=== PATIENT | female | born 1970 | race Two or more races ===

== ENCOUNTER 2017-07-13 12:42 | Emergency (ER) | payer MEDICAID ==
[~2017-07-13] VITALS: Ht 157.5 cm; Wt 90.3 kg
[~2017-07-13 12:42] MED LIST: BENAZEPRIL HCL20 MG ORAL; CATAPRES0.1 MG ORAL; GABAPENTIN300 MG ORAL; HYDROCHLOROTHIA25 MG ORAL; IBUPROFEN600 MG ORAL; MELOXICAM15 MG PO; OXYCODONE-ACET1 EAC5 ORAL
--- NOTE | 2017-07-13 14:04 | Emergency Room Report ---
History of Present Illness General Chief Complaint: Syncope Source: Patient (Mk Cole M.D.) Present Illness HPI 47-year-old female, history of fibromyalgia, chronic pain, presenting with syncopal episode. Patient's son states that she called him to come into the bedroom, she was sitting up in her bed, lost consciousness hit the floor carpet. There was about 5 seconds LOC. Patient woke up and does not recall what happened. Patient states that she only remembers feeling very very sleepy. States that she may have taken too much of her pain medication or her sleeping medication. Denies any suicidal ideation. Denies any chest pain shortness of breath palpitations nausea vomiting prior to incident. (Mk Cole M.D.) Allergies: Coded Allergies: COCONUT (Verified Allergy, Unknown, 07/13/17) PINEAPPLE (Verified Allergy, Unknown, 07/13/17) Patient History Past Medical History: see triage record Past Surgical History: none Pertinent Family History: none Last Menstrual Period: a week ago Reviewed Nursing Documentation: PMH: Agreed, PSxH: Agreed (Mk Cole M.D. ) Nursing Documentation-PMH Past Medical History: No History, Except For Hx Cardiac Problems: Yes - irregular heart beat; heart surgery Hx Hypertension: Yes Hx Pacemaker: No - fibromyalgia Hx Asthma: No Hx COPD: No Hx Diabetes: No Hx Cancer: No Hx Gastrointestinal Problems: No Hx Dialysis: No History Of Psychiatric Problem: Yes - depression Hx Neurological Problems: No Hx Cerebrovascular Accident: No Hx Seizures: No (Mk Cole M.D.) Review of Systems All Other Systems: negative except mentioned in HPI (Mk Cole M.D.) Physical Exam Vital Signs Date Time Temp Pulse Resp B/P (MAP) Pulse Ox O2 Delivery O2 Flow Rate FiO2 07/13/17 12:54 98.2 79 16 159/115 96 Room Air Sp02 EP Interpretation: reviewed, normal General Appearance: normal inspection, well appearing, no apparent distress, alert, GCS 15, non-toxic Head: normocephalic, atraumatic Eyes: bilateral eye normal inspection, bilateral eye PERRL, bilateral eye EOMI ENT: normal ENT inspection, normal pharynx, normal voice, moist mucus membranes Neck: normal inspection, full range of motion, supple, no meningismus Respiratory: normal inspection, lungs clear, normal breath sounds, no respiratory distress, no retraction, no wheezing, speaking full sentences, chest symmetrical Cardiovascular #1: normal inspection, regular rate, rhythm, no edema, normal capillary refill Cardiovascular #2: 2+ radial (R), 2+ radial (L) Gastrointestinal: normal inspection, non tender, soft, non-distended, no guarding Musculoskeletal: normal inspection, back normal, normal range of motion, non- tender Neurologic: normal inspection, alert, oriented x3, responsive, real property evaluator III-XII nml as tested, motor strength/tone normal, sensory intact, normal gait, speech normal Psychiatric: normal inspection, judgement/insight normal, memory normal Skin: normal inspection, normal color, no rash, warm/dry, well hydrated, normal turgor (Mk Cole M.D.) Medical Decision Making Diagnostic Impression: Primary Impression: Syncope Qualified Codes: R55 - Syncope and collapse ER Course 47-year-old female with syncopal episode DDX Vasovagal vs. orthostatic / hypovolemic/dehydration vs. cardiac arrhythmia (SVT , Afib) vs. cardiac (, ACS) vs. PE vs. metabolic (hypoglycemia, hypoxia), vs neuro (seizure, CVA, intracranial bleed) Also possibly induced by taking too much of her sleeping and pain medication Plan: bgm, cbc, bmp, ekg, cxr ER course: EKG: no acute STT changes, normal intervals, no signs of Brugada / WPW / PE Patient has remained stable during ED stay. Patient states improvement of symptoms, and has been able to ambulate around ED Disposition: Signed out patient to Dr. Godinez 47 yo F with syncopal episode pending labs pt neurologically intact likely DC home if neg as patient appears well Please note that this Emergency Department Report was dictated using [employer] technology software, occasionally this can lead to erroneous entry secondary to interpretation by the dictation equipment. EKG Diagnostic Results EP Interpretation: Yes Rate: normal Rhythm: NSR ST Segments: No acute changes ASA given to patient: no Rhythm Strip EP Interpretation: Yes Rate: 82 Rhythm: NSR, no PVCs, no ectopy Chest X-ray CXR: Ordered: Yes 1 view Indication: ams EP interpretation: Yes Interpretation: No consolidation, no effusion, no PTX, no acute cardiopulmonary disease Impression: No acute disease Electronically signed by Mk Cole MD Laboratory Tests Test 07/13/17 14:15 07/13/17 14:50 White Blood Count 7.1 K/UL (4.8-10.8) Red Blood Count 4.32 M/UL (4.20-5.40) Hemoglobin 13.3 G/DL (12.0-16.0) Hematocrit 40.4 % (37.0-47.0) Mean Corpuscular Volume 93 FL (80-99) Mean Corpuscular Hemoglobin 30.7 PG (27.0-31.0) Mean Corpuscular Hemoglobin Concent 32.9 G/DL (32.0-36.0) Red Cell Distribution Width 11.3 % (11.6-14.8) L Platelet Count 413 K/UL (150-450) Mean Platelet Volume 6.1 FL (6.5-10.1) L Neutrophils (%) (Auto) 57.1 % (45.0-75.0) Lymphocytes (%) (Auto) 28.5 % (20.0-45.0) Monocytes (%) (Auto) 9.0 % (1.0-10.0) Eosinophils (%) (Auto) 4.4 % (0.0-3.0) H Basophils (%) (Auto) 1.0 % (0.0-2.0) Sodium Level 141 MMOL/L (136-145) Potassium Level 3.8 MMOL/L (3.5-5.1) Chloride Level 108 MMOL/L (98-107) H Carbon Dioxide Level 25 MMOL/L (21-32) Anion Gap 8 mmol/L (5-15) Blood Urea Nitrogen 11 mg/dL (7-18) Creatinine 0.7 MG/DL (0.55-1.30) Estimate Glomerular Filtration Rate > 60 mL/min (>60) Glucose Level 86 MG/DL (74-106) Calcium Level 9.0 MG/DL (8.5-10.1) Total Bilirubin 0.3 MG/DL (0.2-1.0) Aspartate Amino Transferase (AST) 68 U/L (15-37) H Alanine Aminotransferase (ALT) 129 U/L (12-78) H Alkaline Phosphatase 68 U/L (46-116) Troponin I 0.023 ng/mL (0.000-0.056) Total Protein 7.0 G/DL (6.4-8.2) Albumin 3.4 G/DL (3.4-5.0) Globulin 3.6 g/dL Albumin/Globulin Ratio 0.9 (1.0-2.7) L Urine Color Yellow Urine Appearance Slightly cloudy Urine pH 6.5 (4.5-8.0) Urine Specific [place] 1.010 (1.005-1.035) Urine Protein Negative (NEGATIVE) Urine Glucose (UA) Negative (NEGATIVE) Urine Ketones Negative (NEGATIVE) Urine Occult Blood 2+ (NEGATIVE) H Urine Nitrite Negative (NEGATIVE) Urine Bilirubin Negative (NEGATIVE) Urine Urobilinogen 1 MG/DL (0.0-1.0) H Urine Leukocyte Esterase 3+ (NEGATIVE) H Urine RBC 5-10 /HPF (0 - 2) H Urine WBC 10-15 /HPF (0 - 2) H Urine Squamous Epithelial Cells Few /LPF (NONE/OCC) Urine Bacteria Moderate /HPF (NONE) H Urine HCG, Qualitative Negative (Mk Cole M.D.) ER Course Received signout from Dr Cole to followup labs, eval for syncope ECG is NSR, no ischemia. Troponin 0. UA grossly infected Likely cause is UTI leading to vasovagal syncope No other symptoms in ED Remains stable DC home with Macrobid (DEBBI GODINEZ M.D.) EKG Diagnostic Results Rate: normal Rhythm: NSR ST Segments: no acute changes ASA given to the pt in ED: No (DEBBI GODINEZ M.D.) Rhythm Strip Diag. Results EP Interpretation: yes Rate: 67 Rhythm: NSR, no PVC's, no ectopy (DEBBI GODINEZ M.D.) Last Vital Signs Date Time Temp Pulse Resp B/P (MAP) Pulse Ox O2 Delivery O2 Flow Rate FiO2 07/13/17 12:54 98.2 79 16 159/115 96 Room Air (Mk Cole M.D.) Status: improved (DEBBI GODINEZ M.D.) Disposition: HOME, SELF-CARE Condition: Improved Scripts Nitrofurantoin Monohyd/M-Cryst* (MACROBID 100 MG*) 100 Mg Capsule 100 MG ORAL EVERY 12 HOURS for 7 Days, #14 CAP Prov: DEBBI GODINEZ M.D. 07/13/17 Patient Instructions: Syncope Mk Cole M.D. Jul 13, 2017 14:04 DEBBI GODINEZ M.D. Jul 13, 2017 16:29
[2017-07-13 14:54] LABS: EOSINOPHILS % (AUTO) 4.4 % (0.0-3.0); LYMPHOCYTES % (AUTO) 28.5 % (20.0-45.0); MEAN CORPUSCULAR HEMOGLOBIN 30.7 PG (27.0-31.0); MEAN CORPUSCULAR HGB CONC 32.9 G/DL (32.0-36.0); MEAN CORPUSCULAR VOLUME 93 FL (80-99); MEAN PLATELET VOLUME 6.1 FL (6.5-10.1); NEUTROPHILS % (AUTO) 57.1 % (45.0-75.0); PLATELET COUNT 413 K/UL (150-450); RED BLOOD COUNT 4.32 M/UL (4.20-5.40); RED CELL DISTRIBUTION WIDTH 11.3 % (11.6-14.8); WHITE BLOOD COUNT 7.1 K/UL (4.8-10.8)
--- NOTE | 2017-07-13 15:02 | Diagnostic Imaging Report ---
Indication: PAIN Technique: One view of the chest Comparison: none Findings: Lungs and pleural spaces are clear. Heart size is normal . No significant change Impression: No acute process Note that the right lung opacity described on CT 05/05/2016 is not evident on plain radiograph
[2017-07-13 15:47] VITALS: BP 164/93
[2017-07-13 15:54] LABS: APPEARANCE,URINE SLIGHTLY CLOUDY; KETONES,URINE NEGATIVE (NEGATIVE); LEUKOCYTE ESTERASE ,URINE 3+ (NEGATIVE); NITRITE,URINE NEGATIVE (NEGATIVE); PH,URINE 6.5 (4.5-8.0); PROTEIN,URINE NEGATIVE (NEGATIVE); UROBILINOGEN,URINE 1 MG/DL (0.0-1.0)
[2017-07-13 16:13] LABS: ALANINE AMINOTRANSFERASE 129 U/L (12-78); ALBUMIN/GLOBULIN RATIO 0.9 (1.0-2.7); ANION GAP 8 mmol/L (5-15); ASPARTATE AMINO TRANSFERASE 68 U/L (15-37); CARBON DIOXIDE 25 MMOL/L (21-32); CHLORIDE 108 MMOL/L (98-107); CREATININE 0.7 MG/DL (0.55-1.30); GLOMERULAR FILTRATION RATE > 60 mL/min (>60); POTASSIUM 3.8 MMOL/L (3.5-5.1); SODIUM 141 MMOL/L (136-145)
[2017-07-13 16:14] LABS: SQUAMOUS EPITHELIAL CELL,UR FEW /LPF (NONE/OCC)
[2017-07-13 16:15] LABS: BACTERIA,URINE MODERATE /HPF
[2017-07-13] MEDS ORDERED: NITROFURANTOIN100 M2 ORAL (16:30)
[2017-07-13 16:50] VITALS: BP 177/101
--- NOTE | 2017-07-17 14:56 | Cardiology Report ---
APPROVED REPORT EKG Measurement Heart [id number] Normal sinus rhythm Normal ECG
== END 2017-07-13 16:50 | disposition home or self-care (01) ==
LOC: EMR 14:35
DX: R55 Syncope and collapse (principal); I10 Essential (primary) hypertension; Z91.018 Allergy to other foods; F32.9 Major depressive disorder, single episode, unspecified
CPT/HCPCS: 36415; 71010; 80053; 81003; 81025; 84484; 85025; 87086; 93005; 99283

== ENCOUNTER 2017-08-08 01:44 | Emergency (ER) | payer MEDICAID ==
[~2017-08-08] VITALS: Ht 157.5 cm; Wt 92.1 kg
[~2017-08-08 01:44] MED LIST changes: +NITROFURANTOIN100 M2 ORAL
[2017-08-08 01:54] VITALS: BP 191/117
[2017-08-08 02:46] LABS: BASOPHILS % (AUTO) 0.9 % (0.0-2.0); EOSINOPHILS % (AUTO) 4.6 % (0.0-3.0); LYMPHOCYTES % (AUTO) 29.7 % (20.0-45.0); MEAN CORPUSCULAR HEMOGLOBIN 31.5 PG (27.0-31.0); MEAN CORPUSCULAR HGB CONC 34.2 G/DL (32.0-36.0); MEAN CORPUSCULAR VOLUME 92 FL (80-99); MEAN PLATELET VOLUME 5.6 FL (6.5-10.1); MONOCYTES % (AUTO) 9.1 % (1.0-10.0); NEUTROPHILS % (AUTO) 55.7 % (45.0-75.0); PLATELET COUNT 482 K/UL (150-450); RED BLOOD COUNT 4.45 M/UL (4.20-5.40); RED CELL DISTRIBUTION WIDTH 11.2 % (11.6-14.8); WHITE BLOOD COUNT 9.4 K/UL (4.8-10.8)
--- NOTE | 2017-08-08 02:51 | Emergency Room Report ---
History of Present Illness General Chief Complaint: Hypertension Source: Patient Present Illness HPI 47-year-old female history of hypertension, fibromyalgia, chronic pain, presenting with high blood pressure. Patient states that she checked her blood pressure, systolic was seemed to be 190, states that she's been compliant with her blood pressure medications, states that she got a new patient he care doctor because she does not believe that her current primary care doctors taking care of her. Denying any current chest pain shortness of breath headache. Patient states that she has chronic abdominal pain, that is no worse than normal. She is eating and drinking normally. No black or bloody stools. Some nausea no vomiting. Patient also states that she is been under a great deal of stress, and is seeing a psychotherapist Allergies: Coded Allergies: COCONUT (Verified Allergy, Unknown, 07/13/17) PINEAPPLE (Verified Allergy, Unknown, 07/13/17) Patient History Past Medical History: see triage record Past Surgical History: none Pertinent Family History: none Last Menstrual Period: 08/04/17 Reviewed Nursing Documentation: PMH: Agreed, PSxH: Agreed Nursing Documentation-PMH Hx Cardiac Problems: Yes - irregular heart beat; heart surgery Hx Hypertension: Yes Hx Pacemaker: No - fibromyalgia Hx Asthma: No Hx COPD: No Hx Diabetes: No Hx Cancer: No Hx Gastrointestinal Problems: No Hx Dialysis: No Hx Neurological Problems: No Hx Cerebrovascular Accident: No Hx Seizures: No Review of Systems All Other Systems: negative except mentioned in HPI Physical Exam Vital Signs Date Time Temp Pulse Resp B/P (MAP) Pulse Ox O2 Delivery O2 Flow Rate FiO2 08/08/17 01:50 97.3 88 17 191/117 98 Room Air Sp02 EP Interpretation: reviewed, normal General Appearance: alert, GCS 15, non-toxic, mild distress Head: normocephalic, atraumatic Eyes: bilateral eye normal inspection, bilateral eye PERRL, bilateral eye EOMI ENT: normal ENT inspection, normal pharynx, normal voice, moist mucus membranes Neck: normal inspection, full range of motion, supple Respiratory: normal inspection, lungs clear, normal breath sounds, no respiratory distress, no retraction, no wheezing, speaking full sentences, chest symmetrical Cardiovascular #1: normal inspection, regular rate, rhythm, no edema, normal capillary refill Cardiovascular #2: 2+ radial (R), 2+ radial (L) Gastrointestinal: normal inspection, non tender, soft, non-distended, no guarding Musculoskeletal: normal inspection, back normal, normal range of motion, non- tender Neurologic: normal inspection, alert, oriented x3, responsive, motor strength/ tone normal, sensory intact, normal gait, speech normal Psychiatric: normal inspection, judgement/insight normal, memory normal Skin: normal inspection, normal color, no rash, warm/dry, well hydrated, normal turgor Medical Decision Making Diagnostic Impression: Primary Impression: Hypertension ER Course 47-year-old female, chronic pain, here for high blood pressure reading DDX: Asymptomatic high blood pressure Plan: Obtain labs, ua, ucx, CXR, EKG At this time there is no indication for correction of her blood pressure in the emergency room setting ER course: Patient has remained stable during ED stay. Ambulatory, nontoxic, conversing appropriately, not in acute distres labs unremarkable BP improved systolic <170 asymptomatic Disposition: Patient is to be discharged to home. Patient is instructed to follow up with their primary care doctor within 5 days for recheck of blood pressure and an alteration of blood pressure medications Strict return precautions discussed with patient such as fever, chills, worsening/severe pain, chest pain, SOB, nausea, vomiting, which may indicate severe illness. Patient verbalizes understanding and agrees with plan. Please note that this Emergency Department Report was dictated using [employer] technology software, occasionally this can lead to erroneous entry secondary to interpretation by the dictation equipment EKG Diagnostic Results EP Interpretation: Yes Rate: normal Rhythm: NSR ST Segments: T-wave inversion noted in lead 3 only ASA given to patient: No Rhythm Strip EP Interpretation: Yes Rate: 79 Rhythm: NSR, no PVCs, no ectopy Chest X-ray CXR: Ordered: Yes 1 view Indication: Pain EP interpretation: Yes Interpretation: No consolidation, no effusion, no PTX, no acute cardiopulmonary disease Impression: No acute disease Electronically signed by Mk Cole MD Laboratory Tests Test 08/08/17 02:35 08/08/17 02:50 White Blood Count 9.4 K/UL (4.8-10.8) Red Blood Count 4.45 M/UL (4.20-5.40) Hemoglobin 14.0 G/DL (12.0-16.0) Hematocrit 41.0 % (37.0-47.0) Mean Corpuscular Volume 92 FL (80-99) Mean Corpuscular Hemoglobin 31.5 PG (27.0-31.0) H Mean Corpuscular Hemoglobin Concent 34.2 G/DL (32.0-36.0) Red Cell Distribution Width 11.2 % (11.6-14.8) L Platelet Count 482 K/UL (150-450) H Mean Platelet Volume 5.6 FL (6.5-10.1) L Neutrophils (%) (Auto) 55.7 % (45.0-75.0) Lymphocytes (%) (Auto) 29.7 % (20.0-45.0) Monocytes (%) (Auto) 9.1 % (1.0-10.0) Eosinophils (%) (Auto) 4.6 % (0.0-3.0) H Basophils (%) (Auto) 0.9 % (0.0-2.0) Sodium Level 140 MMOL/L (136-145) Potassium Level 3.4 MMOL/L (3.5-5.1) L Chloride Level 105 MMOL/L (98-107) Carbon Dioxide Level 28 MMOL/L (21-32) Anion Gap 7 mmol/L (5-15) Blood Urea Nitrogen 13 mg/dL (7-18) Creatinine 0.7 MG/DL (0.55-1.30) Estimate Glomerular Filtration Rate > 60 mL/min (>60) Glucose Level 111 MG/DL (74-106) H Calcium Level 8.8 MG/DL (8.5-10.1) Total Bilirubin 0.3 MG/DL (0.2-1.0) Aspartate Amino Transferase (AST) 15 U/L (15-37) Alanine Aminotransferase (ALT) 36 U/L (12-78) Alkaline Phosphatase 85 U/L (46-116) Troponin I 0.023 ng/mL (0.000-0.056) Pro-B-Type Natriuretic Peptide 71 pg/mL (0-125) Total Protein 7.5 G/DL (6.4-8.2) Albumin 3.8 G/DL (3.4-5.0) Globulin 3.7 g/dL Albumin/Globulin Ratio 1.0 (1.0-2.7) Urine Color Pale yellow Urine Appearance Clear Urine pH 7 (4.5-8.0) Urine Specific [place] 1.005 (1.005-1.035) Urine Protein Negative (NEGATIVE) Urine Glucose (UA) Negative (NEGATIVE) Urine Ketones Negative (NEGATIVE) Urine Occult Blood Negative (NEGATIVE) Urine Nitrite Negative (NEGATIVE) Urine Bilirubin Negative (NEGATIVE) Urine Urobilinogen Normal MG/DL (0.0-1.0) Urine Leukocyte Esterase Negative (NEGATIVE) Urine HCG, Qualitative Negative Last Vital Signs Date Time Temp Pulse Resp B/P (MAP) Pulse Ox O2 Delivery O2 Flow Rate FiO2 08/08/17 01:50 97.3 88 17 191/117 98 Room Air Disposition: HOME, SELF-CARE Condition: Improved Patient Instructions: High Blood Pressure (Hypertension) Mk Cole M.D. Aug 08, 2017 02:51
[2017-08-08 03:00] LABS: APPEARANCE,URINE CLEAR; KETONES,URINE NEGATIVE (NEGATIVE); PH,URINE 7 (4.5-8.0); PROTEIN,URINE NEGATIVE (NEGATIVE)
[2017-08-08 03:01] LABS: NITRITE,URINE NEGATIVE (NEGATIVE); UROBILINOGEN,URINE NORMAL MG/DL (0.0-1.0)
[2017-08-08 03:33] LABS: LEUKOCYTE ESTERASE ,URINE NEGATIVE (NEGATIVE)
[2017-08-08 03:38] LABS: ANION GAP 7 mmol/L (5-15); CALCIUM 8.8 MG/DL (8.5-10.1); CARBON DIOXIDE 28 MMOL/L (21-32); CHLORIDE 105 MMOL/L (98-107); CREATININE 0.7 MG/DL (0.55-1.30); GLOMERULAR FILTRATION RATE > 60 mL/min (>60); POTASSIUM 3.4 MMOL/L (3.5-5.1); SODIUM 140 MMOL/L (136-145)
[2017-08-08 03:49] LABS: ALANINE AMINOTRANSFERASE 36 U/L (12-78); ASPARTATE AMINO TRANSFERASE 15 U/L (15-37); TOTAL PROTEIN 7.5 G/DL (6.4-8.2)
[2017-08-08 03:54] VITALS: BP 162/81
[2017-08-08 04:18] VITALS: BP 162/81
--- NOTE | 2017-08-08 10:53 | Diagnostic Imaging Report ---
Indication: Chest pain Technique: One view of the chest Comparison: none Findings: Lungs and pleural spaces are clear. Heart size is normal. Impression: No acute process
--- NOTE | 2017-08-09 11:00 | Cardiology Report ---
APPROVED REPORT EKG Measurement Heart [id number] Normal sinus rhythm Cannot rule out Anterior infarct, age undetermined Abnormal ECG
== END 2017-08-08 04:18 | disposition home or self-care (01) ==
LOC: EMR 02:04
DX: I10 Essential (primary) hypertension (principal)
CPT/HCPCS: 36415; 71010; 80053; 81003; 81025; 83880; 84484; 85025; 93005; 99284

== ENCOUNTER 2017-11-04 03:39 | Emergency (ER) | payer MEDICAID ==
[~2017-11-04] VITALS: Ht 157.5 cm; Wt 92.1 kg
[2017-11-04 03:56] VITALS: BP 181/93
[2017-11-04 04:19] VITALS: BP 180/87
--- NOTE | 2017-11-04 05:51 | Emergency Room Report ---
History of Present Illness General Chief Complaint: Chest Pain Source: Patient Present Illness HPI 47-year-old female presents ED for evaluation. States that since last night she has been feeling very anxious. States her heart began racing. Also noted some chest pressure. Denies any chest pain at this time. [place] also pain going down her left arm. Throbbing, 7 out of 10, nonradiating. Denies shortness of breath. Notes history of hypertension. Also notes history of fibromyalgia. Also notes anxiety. Patient states she was also recently prescribed indication for bronchitis by her PMD. Does not know the name the medication. States she is compliant with her blood pressure meds. Denies drug use. Admits to feeling anxious but was told by her pain management not to take medication for anxiety as she is currently taking multiple pain medications. No other aggravating or relieving factors. Denies any other associated symptoms Allergies: Coded Allergies: COCONUT (Verified Allergy, Unknown, 07/13/17) PINEAPPLE (Verified Allergy, Unknown, 07/13/17) Patient History Past Medical History: HTN, other - fibromyalgia Past Surgical History: none Pertinent Family History: none Social History: Denies: smoking, alcohol use, drug use Now: No Immunizations: UTD Reviewed Nursing Documentation: PMH: Agreed, PSxH: Agreed Nursing Documentation-PMH Past Medical History: No History, Except For Hx Cardiac Problems: Yes - irregular heart beat; heart surgery Hx Hypertension: Yes Hx Pacemaker: No - fibromyalgia Hx Asthma: No Hx COPD: No Hx Diabetes: No Hx Cancer: No Hx Gastrointestinal Problems: No Hx Dialysis: No Hx Neurological Problems: No Hx Cerebrovascular Accident: No Hx Seizures: No Review of Systems All Other Systems: negative except mentioned in HPI Physical Exam Vital Signs Date Time Temp Pulse Resp B/P (MAP) Pulse Ox O2 Delivery O2 Flow Rate FiO2 11/04/17 03:47 98.0 84 11 181/93 99 Room Air 98.1 Sp02 EP Interpretation: reviewed, normal General Appearance: no apparent distress, alert, GCS 15, non-toxic Head: normocephalic, atraumatic Eyes: bilateral eye normal inspection, bilateral eye PERRL ENT: hearing grossly normal, normal pharynx, no angioedema, normal voice Neck: full range of motion, supple/symm/no masses Respiratory: chest non-tender, lungs clear, normal breath sounds, speaking full sentences Cardiovascular #1: regular rate, rhythm, no edema Cardiovascular #2: 2+ carotid (R), 2+ carotid (L), 2+ radial (R), 2+ radial (L) , 2+ dorsalis pedis (R), 2+ dorsalis pedis (L) Gastrointestinal: normal bowel sounds, non tender, soft, non-distended, no guarding, no rebound Rectal: deferred Genitourinary: normal inspection, no CVA tenderness Musculoskeletal: back normal, gait/station normal, normal range of motion, non- tender Neurologic: alert, oriented x3, responsive, motor strength/tone normal, sensory intact, speech normal Psychiatric: judgement/insight normal, memory normal, no suicidal/homicidal ideation, anxious Reflexes: 3+ bicep (R), 3+ bicep (L), 3+ tricep (R), 3+ tricep (L), 3+ knee (R) , 3+ knee (L) Skin: normal color, no rash, warm/dry, well hydrated Lymphatic: no adenopathy Medical Decision Making Diagnostic Impression: Primary Impression: Chest pain Qualified Codes: R07.9 - Chest pain, unspecified ER Course Hospital Course 47-year-old F presents ED complaining of chest pain Differential diagnoses include: Rib fracture, NM/unstable angina, contusion, muscle strain Clinical course Patient placed on stretcher. After initial history, physical exam reveals middle-aged female in no acute distress. Appears anxious. Lungs clear. Heart auscultation normal. EKG performed at bedside. Showing no acute ischemic changes normal sinus rhythm interpreted by me I asked the patient whether she's been compliant with her blood pressure meds. I also asked the patient the name of the medication prescribed for the bronchitis. Patient states she does not know the names of these medications. Patient states my questioning makes her very anxious and she is getting upset. States she wants to leave Understands the risks of leaving. Patient has competency to make her own decisions. Signed AMA form. I. I feel this is a highly complex case requiring extensive working including EKG/Rhythm strip, Xray/CT/US, Blood/urine lab work, repeat exams while in ED, and administration of strong opiates/narcotics for pain control, admission to hospital or close patient follow up. Diagnosis - chest pain patient leaves AMA EKG Diagnostic Results Rate: normal Rhythm: NSR ST Segments: no acute changes ASA given to the pt in ED: No Rhythm Strip Diag. Results EP Interpretation: yes Rhythm: NSR, no PVC's, no ectopy Last Vital Signs Date Time Temp Pulse Resp B/P (MAP) Pulse Ox O2 Delivery O2 Flow Rate FiO2 11/04/17 04:19 98.1 68 10 180/87 99 Room Air 98.1 Status: improved Disposition: AGAINST MEDICAL ADVICE Condition: Unknown Referrals: NON PHYSICIAN (PCP) KILLIAN RAMIRES M.D. Nov 04, 2017 05:51
[2017-11-04] MEDS ORDERED: TYLENOL EXTRA500 MG ORAL (09:33)
[2017-11-04] MEDS ORDERED: DICLOFENAC SODI75 MG ORAL (09:33)
[2017-11-04] MEDS ORDERED: CLONAZEPAM0.5 M1 PO (09:33)
[2017-11-04] MEDS ORDERED: VISTARIL25 M1 PO (10:20)
[2017-11-04] MEDS ORDERED: PEPCID20 MG ORAL (10:20)
== END 2017-11-04 04:25 | disposition left against medical advice (07) ==
LOC: EMR 04:14
DX: R07.89 Other chest pain (principal); I10 Essential (primary) hypertension; M79.7 Fibromyalgia
CPT/HCPCS: 93005; 99284

== ENCOUNTER 2017-11-04 06:47 | Emergency (ER) | payer MEDICAID ==
[~2017-11-04] VITALS: Ht 157.5 cm; Wt 92.1 kg
[2017-11-04 07:07] VITALS: BP 178/95
--- NOTE | 2017-11-04 07:27 | Emergency Room Report ---
History of Present Illness General Chief Complaint: Chest Pain Source: Patient, Medical Record Present Illness HPI The patient presents with left-sided chest pain. Started early this morning. It radiates to her left arm. She feels some numbness in her hand and also tingly pain in the arm. She feels pressure in her chest. She took oxycodone earlier today. The pain is now 5/10 and constant. She denies any reflux or GERD. On Sunday she was evaluated by her own doctor. She was given a prescription for anti-anxiety medication. She saw her pain physician on Sunday and he told her not to mix antianxiety medicine with the pain medication. He is worried that she would stop breathing. She is also in the process of decreasing her use of opiates. The goal is to wean. She is under stress because she's been disabled however is unable to get her disability officially sanctioned. There are days when she cannot get out of bed due to the pain in her body. She presented earlier to the emergency department and had an EKG done. She left because she did not like the physician. She has a history of fibromyalgia. The patient also has a history of hypertension. She denies diabetes, smoking, family history. She denies dysuria, change in bowel habits. She does complain about nausea and also possibly vomited up some frothy phlegm this morning. She has also been complaining about night sweats. She takes amlodipine at night and HCTZ in the AM. She did not take her med this AM. Allergies: Coded Allergies: COCONUT (Verified Allergy, Unknown, 07/13/17) PINEAPPLE (Verified Allergy, Unknown, 07/13/17) Patient History Past Medical History: see triage record Social History: Denies: smoking Social History Narrative brought by daughter - disabled by fibromyalgia Now: No Reviewed Nursing Documentation: PMH: Agreed, PSxH: Agreed Nursing Documentation-PMH Past Medical History: No History, Except For Hx Cardiac Problems: Yes - irregular heart beat; heart surgery Hx Hypertension: Yes Hx Pacemaker: No - fibromyalgia Hx Asthma: No Hx COPD: No Hx Diabetes: No Hx Cancer: No Hx Gastrointestinal Problems: No Hx Dialysis: No Hx Neurological Problems: No Hx Cerebrovascular Accident: No Hx Seizures: No Review of Systems All Other Systems: negative except mentioned in HPI Physical Exam Vital Signs Date Time Temp Pulse Resp B/P (MAP) Pulse Ox O2 Delivery O2 Flow Rate FiO2 11/04/17 06:57 97.9 76 18 180/129 97 Room Air 97.9 Sp02 EP Interpretation: reviewed, normal General Appearance: well appearing, no apparent distress, GCS 15 Head: normocephalic Eyes: bilateral eye normal inspection, bilateral eye PERRL ENT: moist mucus membranes Neck: supple Respiratory: lungs clear, normal breath sounds Cardiovascular #1: regular rate, rhythm Cardiovascular #2: 2+ radial (R) Gastrointestinal: normal inspection, normal bowel sounds, non tender, no mass, non-distended, overweight Musculoskeletal: back normal, gait/station normal, normal range of motion Neurologic: alert, oriented x3, grossly normal Psychiatric: anxious Skin: normal inspection, warm/dry Medical Decision Making Diagnostic Impression: Primary Impression: Chest pain Qualified Codes: R07.9 - Chest pain, unspecified Additional Impressions: Labile hypertension Stress Fibromyalgia ER Course Patient presents with chest pain. Differential includes acute myocardial infarction, GERD, reflux, esophageal spasm, bronchitis, pulmonary embolus amongst others. Evaluation will include EKG, chest x-ray and labs. The patient was treated with Pepcid and Zofran. Her blood pressure is high. She will be given a dose of her HCTZ. Based on VS and history, PE less likely. EKG no injury. Labs significant for normal WBC, CMP and troponin. CXR with poor inspiration. Patient somewhat improved with treatment. BP better after patient took HCTZ and also calming. Discussed findings with family and need for follow up with her MD. Patient stable for outpatient observation and treatment. Laboratory Tests Test 11/04/17 06:45 11/04/17 06:51 White Blood Count 7.3 K/UL (4.8-10.8) Red Blood Count 4.72 M/UL (4.20-5.40) Hemoglobin 15.2 G/DL (12.0-16.0) Hematocrit 43.1 % (37.0-47.0) Mean Corpuscular Volume 91 FL (80-99) Mean Corpuscular Hemoglobin 32.3 PG (27.0-31.0) H Mean Corpuscular Hemoglobin Concent 35.4 G/DL (32.0-36.0) Red Cell Distribution Width 11.1 % (11.6-14.8) L Platelet Count 427 K/UL (150-450) Mean Platelet Volume 5.8 FL (6.5-10.1) L Neutrophils (%) (Auto) 43.5 % (45.0-75.0) L Lymphocytes (%) (Auto) 38.4 % (20.0-45.0) Monocytes (%) (Auto) 9.8 % (1.0-10.0) Eosinophils (%) (Auto) 7.0 % (0.0-3.0) H Basophils (%) (Auto) 1.3 % (0.0-2.0) Prothrombin Time 9.7 SEC (9.30-11.50) Prothrombin Time INR 0.9 (0.9-1.1) PTT 29 SEC (23-33) Sodium Level 137 MMOL/L (136-145) Potassium Level 3.7 MMOL/L (3.5-5.1) Chloride Level 101 MMOL/L (98-107) Carbon Dioxide Level 29 MMOL/L (21-32) Anion Gap 7 mmol/L (5-15) Blood Urea Nitrogen 13 mg/dL (7-18) Creatinine 0.7 MG/DL (0.55-1.30) Estimate Glomerular Filtration Rate > 60 mL/min (>60) Glucose Level 103 MG/DL (74-106) Calcium Level 8.6 MG/DL (8.5-10.1) Total Bilirubin 0.2 MG/DL (0.2-1.0) Aspartate Amino Transferase (AST) 17 U/L (15-37) Alanine Aminotransferase (ALT) 28 U/L (12-78) Alkaline Phosphatase 89 U/L (46-116) Total Creatine Kinase 64 U/L (26-308) Troponin I 0.041 ng/mL (0.000-0.056) Pro-B-Type Natriuretic Peptide 49 pg/mL (0-125) Total Protein 7.9 G/DL (6.4-8.2) Albumin 3.7 G/DL (3.4-5.0) Globulin 4.2 g/dL Albumin/Globulin Ratio 0.9 (1.0-2.7) L Urine Color Pale yellow Urine Appearance Clear Urine pH 7 (4.5-8.0) Urine Specific Institute 1.010 (1.005-1.035) Urine Protein Negative (NEGATIVE) Urine Glucose (UA) Negative (NEGATIVE) Urine Ketones Negative (NEGATIVE) Urine Occult Blood Negative (NEGATIVE) Urine Nitrite Negative (NEGATIVE) Urine Bilirubin Negative (NEGATIVE) Urine Urobilinogen Normal MG/DL (0.0-1.0) Urine Leukocyte Esterase 1+ (NEGATIVE) H Urine RBC 0-2 /HPF (0 - 2) Urine WBC 2-4 /HPF (0 - 2) Urine Squamous Epithelial Cells Few /LPF (NONE/OCC) Urine Bacteria Occasional /HPF (NONE) EKG Diagnostic Results Rate: normal Rhythm: NSR ST Segments: no acute changes Other Impression EKG from 2:54 NSR, rate 86, nl axis and intervals, normal EKG Rhythm Strip Diag. Results EP Interpretation: yes Rhythm: NSR, no PVC's, no ectopy Chest X-Ray Diagnostic Results Chest X-Ray Diagnostic Results : Chest X-Ray Ordered: Yes # of Views/Limited/Complete: 1 View Indication: Chest Pain EP Interpretation: Yes Interpretation: no consolidation, no effusion, no pneumothorax, other - poor insp Impression: No acute disease Electronically Signed by: Joshua Guzman MD Last Vital Signs Date Time Temp Pulse Resp B/P (MAP) Pulse Ox O2 Delivery O2 Flow Rate FiO2 11/04/17 10:35 97.9 82 21 149/85 99 Room Air 208.2 Status: improved Disposition: HOME, SELF-CARE Condition: Improved Scripts Famotidine (PEPCID) 20 Mg Tablet 20 MG ORAL DAILY, #30 TAB 0 Refills Prov: Joshua Guzman M.D. 11/04/17 Hydroxyzine Pamoate (VISTARIL) 25 Mg Capsule 25 MG PO Q8HR Y for anxiety, #10 CAP Prov: Joshua Guzman M.D. 11/04/17 Joshua Guzman M.D. Nov 04, 2017 07:27
[2017-11-04 08:21] LABS: APPEARANCE,URINE CLEAR; BILIRUBIN, URINE NEGATIVE (NEGATIVE); COLOR,URINE PALE YELLOW; GLUCOSE, URINE (UA) NEGATIVE (NEGATIVE); KETONES,URINE NEGATIVE (NEGATIVE); LEUKOCYTE ESTERASE ,URINE 1+ (NEGATIVE); NITRITE,URINE NEGATIVE (NEGATIVE); PH,URINE 7 (4.5-8.0); PROTEIN,URINE NEGATIVE (NEGATIVE); UROBILINOGEN,URINE NORMAL MG/DL (0.0-1.0)
[2017-11-04 08:21] LABS: BASOPHILS % (AUTO) 1.3 % (0.0-2.0); HEMATOCRIT 43.1 % (37.0-47.0); HEMOGLOBIN 15.2 G/DL (12.0-16.0); LYMPHOCYTES % (AUTO) 38.4 % (20.0-45.0); MEAN CORPUSCULAR VOLUME 91 FL (80-99); MONOCYTES % (AUTO) 9.8 % (1.0-10.0); NEUTROPHILS % (AUTO) 43.5 % (45.0-75.0); PLATELET COUNT 427 K/UL (150-450); RED BLOOD COUNT 4.72 M/UL (4.20-5.40); RED CELL DISTRIBUTION WIDTH 11.1 % (11.6-14.8); WHITE BLOOD COUNT 7.3 K/UL (4.8-10.8)
[2017-11-04 08:27] LABS: INR 0.9 (0.9-1.1)
[2017-11-04 08:43] VITALS: BP 158/89
[2017-11-04 08:47] LABS: ANION GAP 7 mmol/L (5-15); BLOOD UREA NITROGEN 13 mg/dL (7-18); CALCIUM 8.6 MG/DL (8.5-10.1); CARBON DIOXIDE 29 MMOL/L (21-32); CHLORIDE 101 MMOL/L (98-107); CREATININE 0.7 MG/DL (0.55-1.30); POTASSIUM 3.7 MMOL/L (3.5-5.1); SODIUM 137 MMOL/L (136-145)
[2017-11-04 08:58] LABS: ALANINE AMINOTRANSFERASE 28 U/L (12-78); ALBUMIN 3.7 G/DL (3.4-5.0); ALBUMIN/GLOBULIN RATIO 0.9 (1.0-2.7); ALKALINE PHOSPHATASE 89 U/L (46-116); ASPARTATE AMINO TRANSFERASE 17 U/L (15-37); BILIRUBIN,TOTAL 0.2 MG/DL (0.2-1.0); CREATINE KINASE 64 U/L (26-308)
[2017-11-04] MEDS ORDERED: CLONAZEPAM0.5 M1 PO (09:33)
[2017-11-04] MEDS ORDERED: DICLOFENAC SODI75 MG ORAL (09:33)
[2017-11-04] MEDS ORDERED: TYLENOL EXTRA500 MG ORAL (09:33)
[2017-11-04 09:40] VITALS: BP 143/86
[2017-11-04] MEDS ORDERED: oxyCODONE HCL/Acetaminophen 5/325mg ORAL ONE (10:00)
--- NOTE | 2017-11-04 10:15 | Diagnostic Imaging Report ---
Indication: Chest pain Technique: XRAY Chest 1v Comparison: None Findings: There is poor inspiration. Cardiomediastinal silhouette is stable. Bronchovascular crowding is noted. There is no pleural effusion. Osseous structures are stable. Impression: Poor inspiration with bronchovascular crowding. Mild congestive changes not excluded. Clinical correlation/follow-up recommended.
[2017-11-04 10:20] VITALS: BP 149/85
[2017-11-04] MEDS ORDERED: PEPCID20 MG ORAL (10:20)
[2017-11-04] MEDS ORDERED: VISTARIL25 M1 PO (10:20)
[2017-11-04 10:35] VITALS: BP 149/85
--- NOTE | 2017-11-04 16:08 | Cardiology Report ---
APPROVED REPORT EKG Measurement Heart [id number] Normal sinus rhythm Normal ECG
== END 2017-11-04 10:37 | disposition home or self-care (01) ==
LOC: EMR 07:20
DX: R07.89 Other chest pain (principal); M79.7 Fibromyalgia; I10 Essential (primary) hypertension; F43.9 Reaction to severe stress, unspecified
CPT/HCPCS: 36415; 71045; 80053; 81003; 82550; 83880; 84484; 85025; 85610; 85730; 93005; 96374; 96375; 99284; J2405; S0028

== ENCOUNTER 2019-01-11 21:18 | Emergency (ER) | payer MEDICAID ==
[~2019-01-11] VITALS: Ht 157.5 cm; Wt 99.8 kg
[~2019-01-11 21:18] MED LIST changes: +CLONAZEPAM0.5 M1 PO; +DICLOFENAC SODI75 MG ORAL; +PEPCID20 MG ORAL; +TYLENOL EXTRA500 MG ORAL; +VISTARIL25 M1 PO
[2019-01-11 21:45] VITALS: BP 175/91
--- NOTE | 2019-01-11 21:45 | NUR ---
ED Nurse Note: Patient walked in to Er from home c/o eyes pain. Per patient she wears contact lenses every day, and today she feels different since this morning. Patient's eyes are red, irritated. AAO x4, BP 175/98 ER MD aware, other vss at ths time.
[2019-01-11] MEDS ORDERED: Fluorescein Strips BOTH EYES ONE (22:00)
[2019-01-11] MEDS ORDERED: POLYTRIM OP SOL10 ML OPHTHALM (22:16)
--- NOTE | 2019-01-11 22:17 | Emergency Room Report ---
History of Present Illness General Chief Complaint: Eye Problems Source: Patient Present Illness HPI This is a 48-year-old female with history of fibromyalgia and hypertension. She presents with chief complaint of bilateral eye pain. Onset yesterday. Pain is diffuse in nature. Worse with lights. Better dark room. She does have some slight discharge. Also steering. Also with blurry vision. No trauma. Has foreign body sensation. Denies any other complaint. Allergies: Coded Allergies: COCONUT (Verified Allergy, Unknown, 07/13/17) PINEAPPLE (Verified Allergy, Unknown, 07/13/17) Patient History Past Medical History: see triage record, old chart reviewed, HTN, other - Fibromyalgia Past Surgical History: other Pertinent Family History: none Social History: Denies: smoking Last Menstrual Period: Dec 11 2018 Now: No Immunizations: other Reviewed Nursing Documentation: PMH: Agreed; PSxH: Agreed Nursing Documentation-PMH Hx Cardiac Problems: Yes - irregular heart beat; heart surgery Hx Hypertension: Yes Hx Pacemaker: No - fibromyalgia Hx Asthma: No Hx COPD: No Hx Diabetes: No Hx Cancer: No Hx Gastrointestinal Problems: No Hx Dialysis: No Hx Neurological Problems: No Hx Cerebrovascular Accident: No Hx Seizures: No Review of Systems Eye: Reports: eye pain, blurred vision ENT: Denies: ear pain, nose congestion, throat swelling Respiratory: Denies: cough, shortness of breath Cardiovascular: Denies: chest pain, palpitations Gastrointestinal: Denies: abdominal pain, diarrhea, nausea, vomiting Musculoskeletal: Denies: back pain, joint pain Skin: Denies: rash Neurological: Denies: headache, numbness Endocrine: Denies: increased thirst, increased urine Hematologic/Lymphatic: Denies: easy bruising All Other Systems: negative except mentioned in HPI Physical Exam Vital Signs Date Time Temp Pulse Resp B/P (MAP) Pulse Ox O2 Delivery O2 Flow Rate FiO2 01/11/19 21:26 97.7 98 18 98 Room Air 01/11/19 21:45 175/91 vitals with high blood pressure Sp02 EP Interpretation: reviewed, normal General Appearance: well appearing, no apparent distress, alert, obese Head: normocephalic, atraumatic Eyes: bilateral eye PERRL, bilateral eye EOMI, bilateral eye other - Bilateral eyes with injection of sclera and conjunctiva. No foreign body. No flourosceine uptake. Negative Matthew sign. ENT: hearing grossly normal, normal pharynx Neck: full range of motion, supple, no meningismus Respiratory: chest non-tender, lungs clear, normal breath sounds Cardiovascular #1: regular rate, rhythm, no murmur Gastrointestinal: normal bowel sounds, non tender, no mass, no organomegaly, no bruit, non-distended Musculoskeletal: back normal, gait/station normal, normal range of motion Psychiatric: mood/affect normal Skin: warm/dry Medical Decision Making Diagnostic Impression: Primary Impression: Conjunctivitis Qualified Codes: H10.33 - Unspecified acute conjunctivitis, bilateral Additional Impression: Hypertension, essential ER Course Patient with eye pain. No evidence of corneal abrasion. No evidence of foreign body. We'll discharge home. Blood pressure improved. Last Vital Signs Date Time Temp Pulse Resp B/P (MAP) Pulse Ox O2 Delivery O2 Flow Rate FiO2 01/11/19 22:11 175/98 01/11/19 21:45 97.7 18 98 Room Air 01/11/19 21:26 98 Status: improved Disposition: HOME, SELF-CARE Condition: Stable Scripts Polymyxin/Trimethoprim (Polytrim Eye Drops) 10 Ml Drops 2 DROP OPHTHALM THREE TIMES A DAY, #1 EA Instill in affected eye for 7 days Prov: Yoan Mclain MD 01/11/19 Patient Instructions: Bacterial Conjunctivitis, [id number] Additional Instructions: Follow-up your DrTalon in 3-5 days if not better. You may need a referral to see an eye doctor for recheck. Return if worse. Yoan Mclain MD January 11, 2019 22:17
[2019-01-11 22:19] VITALS: BP 175/98
--- NOTE | 2019-01-11 22:20 | NUR ---
ED Nurse Note: Pt cleared by health care Provider for discharge. DC instructions/prescription was given and explained to pt and verbalized understanding of teachings. All medical deviecs such as ID band removed. Pt is AAO x4, ambulatory and left with all personal belongings.
== END 2019-01-11 22:20 | disposition home or self-care (01) ==
LOC: EMR 22:00
DX: H10.33 Unspecified acute conjunctivitis, bilateral (principal); I10 Essential (primary) hypertension; M79.7 Fibromyalgia; Z91.018 Allergy to other foods; E66.9 Obesity, unspecified; Z68.41 Body mass index [BMI] 40.0-44.9, adult
CPT/HCPCS: 99282